=== PATIENT | male | born 1935 | race African-American/Black ===

== ENCOUNTER 2019-10-06 14:48 | Emergency (ER) | payer OTHER ==
[~2019-10-06] VITALS: Ht 180.3 cm; Wt 108.9 kg
[~2019-10-06 14:48] MED LIST: ADCIRCA20 MG PO; Depo-Testo100 MG/1 M IM; FURO20 PO; LISI20; LIVALO4 MG PO; METO100ER PO; Micro-K10 MEQ; NORT10; Robaxin-750750 MG PO; SIMV5; TERA5 PO
[2019-10-06 17:29] LABS: BASOPHILS ABSOLUTE AUTO 0.02 K/mm3 (0.00-0.23); BASOPHILS PERCENT AUTO 0 % (0-2); EOSINOPHILS ABSOLUTE AUTO 0.05 K/mm3 (0.00-0.68); EOSINOPHILS PERCENT AUTO 1 % (0-6); Hematocrit 50.1 % (37.0-53.0); Hemoglobin 15.7 g/dL (13.5-17.5); IMMATURE GRAN ABSOLUTE AUTO 0.03 K/mm3 (0.00-0.10); IMMATURE GRAN PERCENT AUTO 0 % (0-1); LYMPHOCYTES ABSOLUTE AUTO 1.17 K/mm3 (0.84-5.20); LYMPHOCYTES PERCENT AUTO 16 % (21-46); MONOCYTES ABSOLUTE AUTO 0.88 K/mm3 (0.16-1.47); MONOCYTES PERCENT AUTO 12 % (4-13); Mean Corpuscular HGB Conc 31.3 g/dL (31.5-36.5); Mean Corpuscular Volume 96 fL (80-100); Mean Platelet Volume 10.2 fL (9.1-12.4); NEUTROPHILS ABSOLUTE AUTO 4.99 K/mm3 (1.96-9.15); NEUTROPHILS PERCENT AUTO 70 % (41-73); Platelet Count 150 K/mm3 (150-400); RDW Coefficient Variation 13.9 % (11.7-14.2); RDW Standard Deviation 48.8 fL (35.1-46.3); Red Blood Cell Count 5.24 M/mm3 (4.30-5.90); White Blood Cell Count 7.14 K/mm3 (4.00-11.30)
[2019-10-06 18:11] LABS: Anion Gap 5 mmol/L (6-16); CO2, Blood 30 mmol/L (21-32); Chloride, Blood 104 mmol/L (98-108); Potassium, Blood 4.2 mmol/L (3.5-5.5); Sodium, Blood 139 mmol/L (136-145)
[2019-10-06 18:12] LABS: Alanine Aminotransfer (ALT/SGP 18 U/L (12-78); Albumin, Blood 3.5 g/dL (3.4-5.0); Albumin/Globulin Ratio 0.7 (0.8-1.8); Alk Phos 77 U/L (50-136); Aspartate Aminotrans (AST/SGOT 16 U/L (12-37); Bilirubin, Total 0.6 mg/dL (0.1-1.0); Blood Urea Nitrogen 16 mg/dL (8-24); Bun/Creatinine Ratio 13.7 (12.0-20.0); Calcium, Blood 8.9 mg/dL (8.5-10.1); Creatinine, Blood 1.17 mg/dL (0.60-1.20); Globulin, Blood 4.9 g/dL (2.2-4.0); Glomerular Filtration Rate 60 (60-); Glucose, Blood 110 mg/dL (70-99); Total Protein, Blood 8.4 g/dL (6.4-8.2); Troponin I <0.015 ng/mL (0.000-0.040)
[2019-10-06 19:40] LABS: Adenovirus Not Detected (NOT DETECT); Bordetella pertussis Not Detected (NOT DETECT); Chlamydophila pneumoniae Not Detected (NOT DETECT); Coronavirus 229E Not Detected (NOT DETECT); Coronavirus HKU1 Not Detected (NOT DETECT); Coronavirus NL63 Not Detected (NOT DETECT); Coronavirus OC43 Not Detected (NOT DETECT); Human Metapneumovirus Not Detected (NOT DETECT); Human Rhinovirus/Enterovirus Not Detected (NOT DETECT); Influenza A/2009-H1 Not Detected (NOT DETECT); Influenza A/H1 Not Detected (NOT DETECT); Influenza A/H3 Not Detected (NOT DETECT); Influenza B Not Detected (NOT DETECT); Mycoplasma pneumoniae Not Detected (NOT DETECT); Parainfluenza Virus 1 Not Detected (NOT DETECT); Parainfluenza Virus 2 Not Detected (NOT DETECT); Parainfluenza Virus 3 Not Detected (NOT DETECT); Parainfluenza Virus 4 Not Detected (NOT DETECT); Respiratory Syncytial Virus Not Detected (NOT DETECT)
== END 2019-10-06 20:30 | disposition home or self-care (01) ==
LOC: ER 14:48
PROVIDERS: Emergency Medicine
DX: R06.00 Dyspnea, unspecified (principal); I10 Essential (primary) hypertension; K21.9 Gastro-esophageal reflux disease without esophagitis; Z88.8 Allergy status to other drugs, medicaments and biological substances; Z79.899 Other long term (current) drug therapy; Z87.891 Personal history of nicotine dependence
CPT/HCPCS: 0099U; 36415; 71260; 80053; 83880; 84484; 85025; 93005; 93010; 99285-25; Q9967

== ENCOUNTER 2019-10-21 05:46 | Day surgery (SDC) | payer OTHER ==
[~2019-10-21] VITALS: Ht 180.3 cm; Wt 109.0 kg
[~2019-10-21 05:46] MED LIST changes: +ASCO500 PO; +Atrovent Inha12.9 GM INH; +D3 + K2 Dots 11 EACH PO; +Diethylpropion75 MG PO; +LANS15EC PO; +LOSA50 PO; +OMEP20ER PO; +PAROEX473 ML MM; +PROAIR DIGIHAL90 MCG INH; +SIMV80 PO
--- NOTE | 2019-10-21 09:42 | NUR ---
Dr. Perry called for clarification of orders. Pt to have iv fluid at 200/ hr. Pt will be evaluated next appointment by for a diuretic.
--- NOTE | 2019-10-21 12:04 | NUR ---
DISCHARGE INSTRUCTIONS GONE OVER WITH PT, PT VERBALIZES UNDERSTANDING. PT INSTRUCTED ON WHAT TO DO IF BLEEDING WERE TO OCCUR. SLING PLACED ON PT RIGHT ARM REMINDER NOT TO USE RIGHT ARM FOR THE NEXT COUPLE OF DAYS. SALINE LOCK OUT WITH CATHETER INTACT. PT TO PRIVATE VEHICLE PER W/C AND ONE STAFF.
== END 2019-10-21 12:00 | disposition home or self-care (01) ==
LOC: MHTC 05:46
PROC: 4A023N6 Measurement of Cardiac Sampling and Pressure, Right Heart, Percutaneous Approach (ICD-10-PCS; principal; 2019-10-21)
PROC: B201YZZ Plain Radiography of Multiple Coronary Arteries using Other Contrast (ICD-10-PCS; principal; 2019-10-21)
DX: I27.20 Pulmonary hypertension, unspecified (principal); I25.10 Atherosclerotic heart disease of native coronary artery without angina pectoris; E78.5 Hyperlipidemia, unspecified; I10 Essential (primary) hypertension; Z79.899 Other long term (current) drug therapy; Z88.8 Allergy status to other drugs, medicaments and biological substances
CPT/HCPCS: 93456; 99152; 99153; C1769; C1894; J1644; J2250; J3010; J7030; Q9967

== ENCOUNTER → 2020-03-18 | Outpatient (CLI) | payer OTHER ==
[~2020-03-18] MED LIST changes: +ACET325 PO; +ALBU2.5V5; +ALBU90OI INH; +ALDACTONE25 MG PO; +AMLO10 PO; +Aspir 8181 MG PO; +BASAGLAR K100 UNIT/1 SC; +CEFP200 PO; +CRANBERRY500 M1 PO; +DELTASONE20 MG PO; +DILTIAZEM 24HR120 M2 PO; +DOCU100 PO; +FURO40 PO; +HUMALOG KW100 UNIT/1 SC; +IPRAT-ALBUT 0.5-3 ML INH; +MELATONIN10 M1 PO; +METF500 PO; +METO100 PO; +OMEGA-3 FISH O1 EAC6 PO; +PANT20 PO; +PRED20 PO; -PROAIR DIGIHAL90 MCG INH; +Polyvinyl Alcoh15 ML BOTHEYES; +ROSU10TA PO; +SPIRIVA RESPIMAT4 G3 INH; +SULFAMETHOXAZO1 EAC1 PO; +SYMBICORT 160-4.6 GM INH; +TORSE20; +TORSE20 PO; +Terazosin HCl10 MG PO; +VISBIOME PROBIOTIC PO; +VITAMIN D31000 UNI1 PO
[2020-03-18 15:36] LABS: BASOPHILS ABSOLUTE AUTO 0.02 K/mm3 (0.00-0.23); BASOPHILS PERCENT AUTO 0 % (0-2); EOSINOPHILS ABSOLUTE AUTO 0.06 K/mm3 (0.00-0.68); EOSINOPHILS PERCENT AUTO 1 % (0-6); Hematocrit 35.9 % (37.0-53.0); Hemoglobin 11.6 g/dL (13.5-17.5); IMMATURE GRAN ABSOLUTE AUTO 0.02 K/mm3 (0.00-0.10); IMMATURE GRAN PERCENT AUTO 0 % (0-1); LYMPHOCYTES ABSOLUTE AUTO 1.15 K/mm3 (0.84-5.20); LYMPHOCYTES PERCENT AUTO 13 % (21-46); MONOCYTES ABSOLUTE AUTO 0.82 K/mm3 (0.16-1.47); MONOCYTES PERCENT AUTO 9 % (4-13); Mean Corpuscular HGB 30.5 pg (26.0-34.0); Mean Corpuscular HGB Conc 32.3 g/dL (31.5-36.5); Mean Corpuscular Volume 95 fL (80-100); Mean Platelet Volume 10.9 fL (9.1-12.4); NEUTROPHILS ABSOLUTE AUTO 6.82 K/mm3 (1.96-9.15); NEUTROPHILS PERCENT AUTO 77 % (41-73); Platelet Count 186 K/mm3 (150-400); RDW Coefficient Variation 14.8 % (11.7-14.2); RDW Standard Deviation 51.6 fL (35.1-46.3); White Blood Cell Count 8.89 K/mm3 (4.00-11.30)
[2020-03-18 16:01] LABS: Albumin/Globulin Ratio 0.7 (0.8-1.8); Bilirubin, Total 0.5 mg/dL (0.1-1.0); Bun/Creatinine Ratio 16.5 (12.0-20.0); Calcium, Blood 9.4 mg/dL (8.5-10.1); Creatinine, Blood 1.39 mg/dL (0.60-1.20); Globulin, Blood 4.6 g/dL (2.2-4.0); Potassium, Blood 4.6 mmol/L (3.5-5.5); Total Protein, Blood 7.6 g/dL (6.4-8.2); Troponin I 0.041 ng/mL (0.000-0.040)
== END | disposition home or self-care (01) ==
LOC: LAB SHORT 15:31 → LAB EV 15:31
PROVIDERS: Physician Assistant
DX: R07.9 Chest pain, unspecified (principal)
CPT/HCPCS: 80053; 84484; 85025

== ENCOUNTER 2020-05-03 18:59 | Inpatient (IN) | payer OTHER ==
[~2020-05-03] VITALS: Ht 180.3 cm; Wt 98.0 kg
[~2020-05-03 18:59] MED LIST changes: -DELTASONE20 MG PO; -FURO40 PO; +Lasix20 MG PO; +Prednisone10 MG PO
[2020-05-03 19:51] LABS: BASOPHILS ABSOLUTE AUTO 0.02 K/mm3 (0.00-0.23); BASOPHILS PERCENT AUTO 0 % (0-2); EOSINOPHILS PERCENT AUTO 0 % (0-6); Hematocrit 47.5 % (37.0-53.0); IMMATURE GRAN PERCENT AUTO 2 % (0-1); LYMPHOCYTES ABSOLUTE AUTO 0.73 K/mm3 (0.84-5.20); LYMPHOCYTES PERCENT AUTO 7 % (21-46); MONOCYTES PERCENT AUTO 3 % (4-13); Mean Corpuscular HGB 30.6 pg (26.0-34.0); Mean Corpuscular HGB Conc 31.6 g/dL (31.5-36.5); Mean Corpuscular Volume 97 fL (80-100); Mean Platelet Volume 10.1 fL (9.1-12.4); NEUTROPHILS ABSOLUTE AUTO 8.76 K/mm3 (1.96-9.15); NEUTROPHILS PERCENT AUTO 88 % (41-73); NRBC ABSOLUTE 0.04 K/mm3 (0.00-0.02); NRBC Auto 0.4 /100 WBC (0.0-0.2); Platelet Count 93 K/mm3 (150-400); RDW Coefficient Variation 19.7 % (11.7-14.2); RDW Standard Deviation 69.4 fL (35.1-46.3); White Blood Cell Count 10.01 K/mm3 (4.00-11.30)
[2020-05-03 20:00] LABS: PCO2 Arterial 41.8 mmHg (35-45); PO2 Arterial 207 mmHg (80-100); pH Blood Arterial 7.47 (7.35-7.45)
[2020-05-03 20:07] LABS: Alanine Aminotransfer (ALT/SGP 83 U/L (12-78); Albumin, Blood 2.8 g/dL (3.4-5.0); Albumin/Globulin Ratio 0.9 (0.8-1.8); Alk Phos 54 U/L (50-136); Anion Gap 5 mmol/L (6-16); Aspartate Aminotrans (AST/SGOT 28 U/L (12-37); Bilirubin, Total 0.6 mg/dL (0.1-1.0); Blood Urea Nitrogen 32 mg/dL (8-24); Bun/Creatinine Ratio 28.1 (12.0-20.0); CO2, Blood 29 mmol/L (21-32); Calcium, Blood 8.3 mg/dL (8.5-10.1); Chloride, Blood 107 mmol/L (98-108); Creatinine, Blood 1.14 mg/dL (0.60-1.20); Globulin, Blood 3.2 g/dL (2.2-4.0); Glomerular Filtration Rate >60 (60-); Glucose, Blood 164 mg/dL (70-99); Potassium, Blood 4.5 mmol/L (3.5-5.5); Sodium, Blood 141 mmol/L (136-145)
[2020-05-03 20:08] LABS: Troponin I 0.262 ng/mL (0.000-0.040)
[2020-05-03 21:15] LABS: Influenza A, PCR Negative (NEGATIVE); Influenza B, PCR Negative (NEGATIVE); Resp Syncytial Virus, PCR Negative (NEGATIVE); SARS-Cov-2 (COVID-19) PCR, MMC Negative (NEGATIVE)
[2020-05-04 03:31] LABS: BASOPHILS ABSOLUTE AUTO 0.02 K/mm3 (0.00-0.23); BASOPHILS PERCENT AUTO 0 % (0-2); EOSINOPHILS PERCENT AUTO 0 % (0-6); Hemoglobin 14.7 g/dL (13.5-17.5); IMMATURE GRAN ABSOLUTE AUTO 0.15 K/mm3 (0.00-0.10); IMMATURE GRAN PERCENT AUTO 2 % (0-1); LYMPHOCYTES ABSOLUTE AUTO 0.91 K/mm3 (0.84-5.20); LYMPHOCYTES PERCENT AUTO 9 % (21-46); MONOCYTES ABSOLUTE AUTO 0.37 K/mm3 (0.16-1.47); MONOCYTES PERCENT AUTO 4 % (4-13); Mean Corpuscular HGB 30.9 pg (26.0-34.0); Mean Corpuscular HGB Conc 31.3 g/dL (31.5-36.5); Mean Corpuscular Volume 99 fL (80-100); Mean Platelet Volume 10.6 fL (9.1-12.4); NEUTROPHILS ABSOLUTE AUTO 8.75 K/mm3 (1.96-9.15); NEUTROPHILS PERCENT AUTO 86 % (41-73); NRBC ABSOLUTE 0.04 K/mm3 (0.00-0.02); NRBC Auto 0.4 /100 WBC (0.0-0.2); Platelet Count 102 K/mm3 (150-400); RDW Coefficient Variation 19.3 % (11.7-14.2); RDW Standard Deviation 69.8 fL (35.1-46.3); Red Blood Cell Count 4.76 M/mm3 (4.30-5.90)
[2020-05-04 03:51] LABS: Anion Gap 4 mmol/L (6-16); Blood Urea Nitrogen 30 mg/dL (8-24); Bun/Creatinine Ratio 30.4 (12.0-20.0); CO2, Blood 32 mmol/L (21-32); Calcium, Blood 7.8 mg/dL (8.5-10.1); Chloride, Blood 105 mmol/L (98-108); Creatinine, Blood 0.99 mg/dL (0.60-1.20); Glomerular Filtration Rate >60 (60-); Glucose, Blood 82 mg/dL (70-99); Potassium, Blood 3.8 mmol/L (3.5-5.5); Sodium, Blood 141 mmol/L (136-145); Troponin I 0.365 ng/mL (0.000-0.040)
--- NOTE | 2020-05-04 07:30 | NUR ---
SHIFT SUMMARY PT ARRIVED TO THE UNIT AROUND 2300 WITH SOB ON 12LPM VIA NON REBREATHER MASK WITH 02 SATS IN THE HIGH 80'S TO LOW 90'S. PT WAS SWITCHED TO NC AND O2 SATS DROPPED AND SUSTAINED IN THE 80'S SO WENT BACK ON NRB. AFTER PT WAS COMFORTABLE IN BED HE WAS PUT BACK ON NC AT 6LPM AND WAS ABLE TO SLEEP, WHILE SLEEPING O2 SATS REMAINED IN THE 90'S RARELY DROPPING BELOW 90%. LUNGS WERE COARSE SOUNDING T/O. PT STATES BEING ON 3LPM VIA NC AT HOME. VITALS WERE; BP WAS 134/82 UPON ADMISSION DOWN TO 105/68 BY AM, HR IN THE 110'S IN SINUS RHYTHM. BLOOD GLUCOSE CLIMBED FROM 78 TO 132 BY AM, EVENING LANTUS WAS GIVEN UPON ADMISSION TO UNIT. PT IS OUT OF ROOM AT MN.
--- NOTE | 2020-05-04 11:20 | NUR ---
ASSUMED CARE OF PATIENT. REPORT RECEIVED FROM NIKUNJ COFFMAN RN.
--- NOTE | 2020-05-04 12:40 | NUR ---
Spiritual care visit conducted. Patient is sitting up in bed and alert. Patient tells me about his medical history, his current symptoms (SOB and leg weakness) and about what has been happening with [facility] regarding his health. 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 I normalize patient's experience, reinforce helpful attitudes and practices and provide companionship, pastoral employment counselor and prayer. Patient reponds well and shows signs of an elevated mood. I will continue to remain available to patient and fmaily.
--- NOTE | 2020-05-04 19:12 | NUR ---
REQUEST FOR RECORDS FAXED TO [facility] BY RODNEY BUENROSTRO RN.
--- NOTE | 2020-05-04 19:20 | NUR ---
ASSUMED CARE OF PATIENT. REPORT RECEIVED FROM NIKUNJ COFFMAN RN.
--- NOTE | 2020-05-04 23:30 | NUR ---
ASSUMPTION OF CARE RECEIVED BEDSIDE REPORT AND ASSUMED CARE FOR REMAINDER OF SHIFT. PT IS RESTING QUIETLY, EYES CLOSED, IN BED, NO VISIBLE CONCERNS. VSS, BED IN LOW POSITION. WILL CONTINUE PLAN OF CARE AND CONTINUE TO MONITOR.
--- NOTE | 2020-05-04 23:54 | NUR ---
SHIFT SUMMARY: PATIENT A/OX3. HAS DENIED PAIN THROUGHOUT THE SHIFT. ON 6L O2 VIA HIGH FLOW NC. WEARS 4L AT HOME. HAD TO INCREASE O2 TO 8L WHEN PATIENT STOOD UP TO GO TO WHEELCHAIR AND TO TRANSFER TO TOILET IN BATHROOM TO KEEP SPO2 >90%. PATIENT STATES THAT HE FEELS HIS BREATHING HAS IMPROVED AND THAT AMBULATING WAS LESS DIFFICULT THAN PREVIOUSLY. REFUSED CHAIR FOR MEALS, STATES THAT HE WILL TRY TO TOMORROW. REPORT GIVEN TO CALEB BERMEO.
[2020-05-05 04:24] LABS: BASOPHILS ABSOLUTE AUTO 0.01 K/mm3 (0.00-0.23); BASOPHILS PERCENT AUTO 0 % (0-2); EOSINOPHILS PERCENT AUTO 0 % (0-6); Hematocrit 45.4 % (37.0-53.0); Hemoglobin 14.6 g/dL (13.5-17.5); IMMATURE GRAN ABSOLUTE AUTO 0.15 K/mm3 (0.00-0.10); IMMATURE GRAN PERCENT AUTO 1 % (0-1); LYMPHOCYTES ABSOLUTE AUTO 1.04 K/mm3 (0.84-5.20); LYMPHOCYTES PERCENT AUTO 10 % (21-46); MONOCYTES ABSOLUTE AUTO 0.77 K/mm3 (0.16-1.47); MONOCYTES PERCENT AUTO 7 % (4-13); Mean Corpuscular HGB 31.3 pg (26.0-34.0); Mean Corpuscular HGB Conc 32.2 g/dL (31.5-36.5); Mean Corpuscular Volume 97 fL (80-100); Mean Platelet Volume 11.3 fL (9.1-12.4); NEUTROPHILS ABSOLUTE AUTO 8.73 K/mm3 (1.96-9.15); NEUTROPHILS PERCENT AUTO 82 % (41-73); NRBC ABSOLUTE 0.03 K/mm3 (0.00-0.02); NRBC Auto 0.3 /100 WBC (0.0-0.2); Platelet Count 118 K/mm3 (150-400); RDW Coefficient Variation 18.8 % (11.7-14.2); RDW Standard Deviation 67.4 fL (35.1-46.3); Red Blood Cell Count 4.67 M/mm3 (4.30-5.90)
[2020-05-05 04:43] LABS: Albumin, Blood 2.8 g/dL (3.4-5.0); Anion Gap 5 mmol/L (6-16); Blood Urea Nitrogen 36 mg/dL (8-24); Bun/Creatinine Ratio 31.9 (12.0-20.0); CO2, Blood 32 mmol/L (21-32); Calcium, Blood 8.2 mg/dL (8.5-10.1); Chloride, Blood 101 mmol/L (98-108); Creatinine, Blood 1.13 mg/dL (0.60-1.20); Glomerular Filtration Rate >60 (60-); Glucose, Blood 173 mg/dL (70-99); Phosphorus, Blood 3.2 mg/dL (2.5-4.9); Potassium, Blood 3.9 mmol/L (3.5-5.5); Sodium, Blood 138 mmol/L (136-145)
--- NOTE | 2020-05-05 06:35 | NUR ---
SHIFT SUMMARY PT HAS RESTED WELL, AROUSES EASILY, ALERT AND ORIENTED, PLEASANT AND HIGHLY PARTICIPATIVE IN CARE. NO ACUTE CONCERNS, DIURESING NICELY WITH DECREASING OXYGEN DEMANDS. DISCHARGE PLANNING REQUESTED FOR ASSISTANCE R/T GENERALIZED WEAKNESS AND INABILITY TO AMBULATE DISTANCE/STEPS REQUIRED AT HOME. WILL GIVE BEDSIDE REPORT TO CALEB CARSON.
--- NOTE | 2020-05-05 18:31 | NUR ---
SHIFT SUMMARY: PT CONTINUES A&OX4 T/OUT SHIFT, SPENT MOST OF THE DAY IN THE BEDSIDE RECLINER. PT CURRENTLY RECEIVING OXYGEN VIA NC AT 6L/MIN, UP TO 8L/MIN WITH ACTIVITY. PT STATES IMPROVEMENT OF OVERALL FEELING TODAY, IS COMPLIANT WITH HIS STRICT I&O, RECEIVING IV LASIX Q6H, VS HAVE BEEN STABLE. PT C/O SORE INSIDE MOUTH, DR GILLIAM EVALUATED, PLACED ORDERS FOR PRN VISCOUS LIDOCAINE, PT IS AWARE BUT HAS NOT REQUESTED MEDICATION THUS FAR. WILL CONTINUE TO MONITOR AND TREAT ACCORDINGLY UNTIL CHANGE OF SHIFT.
--- NOTE | 2020-05-06 01:58 | NUR ---
UPDATE PT NEEDED PANTS CHANGED. PT STOOD WITH WALKER AND LOWERED SELF ONTO BED. PT UNSURE IF HE PASSED OUT. CHARGE NURSE CALLED INTO THE ROOM. PT'S OXYGEN SATURATION DECREASED TO 82%, OXYGEN INCREASED TO 11 L VIA NC. OXYGEN SATURATION RETURNED TO 95%. AFTER 15 MINUTES OXYGEN SUPPLEMENTATION DECREASED TO 5L. PT OXYGEN SATURATION MAINTAINED AT 92%. TELEMETRY REVIEWED TO DETERMINE IF CARDIAC CHANGED OCCURED DURING THIS TIME. NO CARDIAC CHANGES WERE SEEN. PT REPORTS NO CP OR PRESSURE.
[2020-05-06 04:20] LABS: Hematocrit 46.8 % (37.0-53.0); Hemoglobin 14.6 g/dL (13.5-17.5); Mean Corpuscular HGB 30.5 pg (26.0-34.0); Mean Corpuscular HGB Conc 31.2 g/dL (31.5-36.5); Mean Corpuscular Volume 98 fL (80-100); Mean Platelet Volume 9.8 fL (9.1-12.4); NRBC ABSOLUTE 0.03 K/mm3 (0.00-0.02); NRBC Auto 0.4 /100 WBC (0.0-0.2); Platelet Count 111 K/mm3 (150-400); RDW Coefficient Variation 18.7 % (11.7-14.2); RDW Standard Deviation 67.7 fL (35.1-46.3); Red Blood Cell Count 4.79 M/mm3 (4.30-5.90); White Blood Cell Count 8.57 K/mm3 (4.00-11.30)
[2020-05-06 04:39] LABS: Anion Gap 3 mmol/L (6-16); Blood Urea Nitrogen 36 mg/dL (8-24); Bun/Creatinine Ratio 39.7 (12.0-20.0); CO2, Blood 36 mmol/L (21-32); Calcium, Blood 8.4 mg/dL (8.5-10.1); Chloride, Blood 102 mmol/L (98-108); Creatinine, Blood 0.91 mg/dL (0.60-1.20); Glomerular Filtration Rate >60 (60-); Glucose, Blood 161 mg/dL (70-99); Potassium, Blood 3.8 mmol/L (3.5-5.5); Sodium, Blood 141 mmol/L (136-145)
--- NOTE | 2020-05-06 05:17 | NUR ---
SHIFT SUMMARY PT AWAKE T/O SHIFT. PT ALERT AND ORIENTED X 4. PT ABLE TO TURN SELF IN BED NEEDED. OXYGEN LEVEL DESATS UPON EXERTION BUT RECOVERS DURING REST. OXYGEN LEVEL MAINTAINED ABOVE 92% ON 5 L OF OXYGEN VIA NC. HR STABLE. BP STABLE. PT REPORTS NO CP OR PRESSURE DURING SHIFT. WILL CONTINUE TO MONITOR UNTIL REPORT GIVEN TO DAYSHIFT RN.
--- NOTE | 2020-05-06 08:00 | NUR ---
pt laying in bed, awake a/ox3, pleasant and cooperative with care, follows commands well, denies any complaints of pain or sob this am, feels like he had a good night and slept, lungs are course, with some exp wheezing t/o, resp even and unlabored at rest, he reports he becomes very labored and sats drop with activity, is currently on 5 liters 02 via n/c, no cough noted, hrr, tele in place running sr to st per monitor, see strip, no edema noted, PPP+1, cap refill <3sec, vs stable, afebrile, iv site clear and patent, btx4, abd flat soft nontender, incon of urine and stool, attends in place, skin c/w/d, maew, very weak, love, call light in reach.
--- NOTE | 2020-05-06 18:01 | NUR ---
received pt care at 1500. pt has been quite pleasant and talkative since assumed care. was here for awhile this aft. then went home. pt is compliant with any care requests made. o2 staying 90-91%. does desat when he talks some. no new concerns. bed in low position, call lite in reach, calls approp
[2020-05-07 04:15] LABS: Anion Gap 5 mmol/L (6-16); Blood Urea Nitrogen 41 mg/dL (8-24); CO2, Blood 33 mmol/L (21-32); Calcium, Blood 8.5 mg/dL (8.5-10.1); Chloride, Blood 101 mmol/L (98-108); Creatinine, Blood 1.08 mg/dL (0.60-1.20); Glomerular Filtration Rate >60 (60-); Glucose, Blood 221 mg/dL (70-99); Potassium, Blood 4.3 mmol/L (3.5-5.5); Sodium, Blood 139 mmol/L (136-145)
--- NOTE | 2020-05-07 05:23 | NUR ---
SHIFT SUMMARY PT SLEPT T/O SHIFT. PT ALERT AND ORIENTED X 4. PT ABLE TO TURN SELF IN BED. PT ABLE TO USE URINAL NEEDED. OXYGEN SATURAION MAINTAINED ABOVE 92% ON 4 L OF OXYGEN VIA NC. HR STABLE. BP STABLE. PT REPORTS NO CP OR PRESSURE. WILL CONTINUE TO MONITOR UNTIL REPORT GIVEN TO DAYSHIFT RN.
--- NOTE | 2020-05-07 18:15 | NUR ---
SHIFT SUMMARY: PT CONTINUES A&O TO PERSON, PLACE, SITUATION T/OUT SHIFT. PT TYRESE TO STAND AND TRANSFER SELF TO BEDSIDE CHAIR, CONTINUES WEAK AND BECOMES SOB, BUT RECOVERING QUICKER TODAY WHEN COMPARED TO PREVIOUS DAYS. PT ALSO STATES IMPROVEMENT OF OVERALL FEELING OF WELLNESS. WILL CONTINUE TO MONITOR AND TREAT ACCORDINGLY UNTIL CHANGE OF SHIFT.
--- NOTE | 2020-05-07 22:10 | NUR ---
UPDATE WHILE TRANSFERRING THE PT BACK TO BED FROM THE CHAIR THE PT'S OXYGEN LOWERED INTO THE 80'S. PT'S OXYGEN DEMAND INCREASED TO 7 L/MIN. PT FELT WEAK/DIZZY. OXYGEN SATURATION MAINTAINED AT 94% WITHIN 1 MINUTE OF INCREASING PT'S OXYGEN LEVEL VIA NC.
--- NOTE | 2020-05-08 05:29 | NUR ---
SHIFT SUMMARY PT ALERT AND ORIENTED X 4. PT ABLE TO TURN SELF IN BED NEEDED. PT OXYGEN LEVEL DESATS QUICKLY WITH AMBULATION, PT RECOVERS QUICKLY. PT REPORTS NO CP OR PRESSURE. HR STABLE. BP STABLE. OXYGEN SATURATION MAINTAINED ABOVE 92% ON 4-5 L OF OXYGEN VIA NC. WILL CONTINUE TO MONITOR UNTIL REPORT GIVEN TO DAYSHIFT RN.
--- NOTE | 2020-05-08 12:50 | NUR ---
Clinical Visit: Pt is alert, oriented, pleasant. He jokes frequently; it is clear that pt does not want to approach serious matters without humor. Presented POLST form and resusitation measures. Questions answered. After discussion, pt is accepting of all FULL code resusitation interventions. He states, "I want all of it." Pt is also okay to having dialysis and feeding tubes if needed. , Laura, is at bedside and is part of the conversation. POLST filled out and signed by pt. Message on doorway for doc to sign prior to discharge tomorrow. No other concerns, will remain available.
--- NOTE | 2020-05-08 15:53 | NUR ---
Spiritual care visit conducted. Patient is sitting on a chair and alert. Patient tells me about the tragedy of the complicated of his [id number] that occured last week and the blessing of his improved health and of having his grown children coming home for Thanksgiving. Patient tells me about his deep trust in God, his peace about and dying and about his gratitude for the [facility] at [facility]. I provide grief support, companionship and prayer. In a strange turn of events patient, in turn, says a prayer for me. We were both encouraged and said so. I will continue to remain available to patient and his family.
--- NOTE | 2020-05-08 18:18 | NUR ---
SHIFT SUMMARY: NO ACUTE CHANGES THIS SHIFT. PT CONTINUES ALERT AND ORIENTED X4, IS ABLE TO TRANSFER SELF IN WAYS THAT WILL MIMIC WHAT HIS HOME ENVIRONMENT WILL BE LIKE AND TOLERATES WELL. PT TRANSFERS SELF TO AND FROM BEDSIDE CHAIR, WHEELCHAIR, RESTROOM, AND BED WITH MILD OXYGEN DESATURATION. PT STATES CONTINUED IMPROVEMENT OF OVERALL FEELING. PT REQUESTING TO DC HOME TOMORROW, DR GILLIAM AGREEABLE DEPENDING ON PT STATUS AND PROGRESSION OF SYMPTOMS. WILL CONTINUE TO MONITOR AND TREAT ACCORDINGLY UNTIL CHANGE OF SHIFT.
[2020-05-09 04:24] LABS: Anion Gap 3 mmol/L (6-16); Blood Urea Nitrogen 35 mg/dL (8-24); Bun/Creatinine Ratio 37.8 (12.0-20.0); CO2, Blood 36 mmol/L (21-32); Calcium, Blood 8.5 mg/dL (8.5-10.1); Chloride, Blood 104 mmol/L (98-108); Creatinine, Blood 0.93 mg/dL (0.60-1.20); Glomerular Filtration Rate >60 (60-); Glucose, Blood 254 mg/dL (70-99); Potassium, Blood 4.3 mmol/L (3.5-5.5); Sodium, Blood 143 mmol/L (136-145)
--- NOTE | 2020-05-09 05:52 | NUR ---
SHIFT SUMMARY PT ALERT AND ORIENTED X 4. PT SBA FROM CHAIR TO BED. PT USES URINAL NEEDED. PT REPORTS NO CP OR PRESSURE. OXYGEN SATURATION MAINTAINED AT 92% WITH 4-6 L OF OXYGEN VIA NC. BP STABLE. HR STABLE. PT ABLE TO TURN SELF IN BED. WILL CONTINUE TO MONITOR UNTIL REPORT GIVEN TO DAYSHIFT RN.
[2020-05-09] MEDS ORDERED: SPIR25 PO (17:48)
[2020-05-09] MEDS ORDERED: GUAI600T33 PO (17:48)
--- NOTE | 2020-05-09 17:53 | NUR ---
DISCHARGE INSTRUCTIONS REVIEWED WITH PT AND SPOUSE. DC'D A/A/OX4 ON HOME O2 BROUGHT BY .
== END 2020-05-09 18:19 | disposition home or self-care (01) | DRG 291 ==
LOC: ER 18:59 → PCU 19:00
PROVIDERS: Emergency Medicine; Internal Medicine; Internal Medicine Critical Care Medicine; Nurse Practitioner Acute Care; ADMIT Family Medicine
DX: I13.0 Hypertensive heart and chronic kidney disease with heart failure and stage 1 through stage 4 chronic kidney disease, or unspecified chronic kidney disease (principal); J96.21 Acute and chronic respiratory failure with hypoxia; I50.33 Acute on chronic diastolic (congestive) heart failure; J84.9 Interstitial pulmonary disease, unspecified; J84.10 Pulmonary fibrosis, unspecified; N18.30 Chronic kidney disease, stage 3 unspecified; Z96.653 Presence of artificial knee joint, bilateral; I27.20 Pulmonary hypertension, unspecified; Z87.891 Personal history of nicotine dependence; Z96.649 Presence of unspecified artificial hip joint; Z79.82 Long term (current) use of aspirin; Z79.4 Long term (current) use of insulin; E66.9 Obesity, unspecified; K21.9 Gastro-esophageal reflux disease without esophagitis; Z20.828 Contact with and (suspected) exposure to other viral communicable diseases; E09.22 Drug or chemical induced diabetes mellitus with diabetic chronic kidney disease; E78.5 Hyperlipidemia, unspecified; N40.0 Benign prostatic hyperplasia without lower urinary tract symptoms; G47.00 Insomnia, unspecified; J43.9 Emphysema, unspecified; E09.649 Drug or chemical induced diabetes mellitus with hypoglycemia without coma; Z99.81 Dependence on supplemental oxygen; Z68.29 Body mass index [BMI] 29.0-29.9, adult
CPT/HCPCS: 0241U; 36415; 36600; 71045; 71260; 80048; 80053; 80069; 82803; 82947; 83880; 84145; 84484; 85025; 85027; 85379; 93005; 93010; 94640; 94760; 94762; 96374; 97110; 97162; 97165; 97530; 97535; 99285-25; A9270; A9270-GY; J1650; J1940; J2930; J7512; Q9967

== ENCOUNTER 2020-05-12 00:12 | Inpatient (IN) | payer OTHER ==
[~2020-05-12] VITALS: Ht 180.3 cm; Wt 88.9 kg
[~2020-05-12 00:12] MED LIST changes: +GUAI600T33 PO; +SPIR25 PO
[2020-05-12 00:35] LABS: PCO2 Arterial 44.2 mmHg (35-45); PO2 Arterial 106 mmHg (80-100); pH Blood Arterial 7.46 (7.35-7.45)
[2020-05-12 01:53] LABS: Hematocrit 46.5 % (37.0-53.0); Hemoglobin 14.4 g/dL (13.5-17.5); Mean Corpuscular HGB 30.6 pg (26.0-34.0); Mean Corpuscular Volume 99 fL (80-100); Mean Platelet Volume 10.4 fL (9.1-12.4); NRBC ABSOLUTE 0.05 K/mm3 (0.00-0.02); NRBC Auto 0.5 /100 WBC (0.0-0.2); Platelet Count 137 K/mm3 (150-400); RDW Standard Deviation 69.9 fL (35.1-46.3); White Blood Cell Count 10.28 K/mm3 (4.00-11.30)
[2020-05-12 02:00] LABS: Alanine Aminotransfer (ALT/SGP 76 U/L (12-78); Albumin/Globulin Ratio 0.9 (0.8-1.8); Alk Phos 53 U/L (50-136); Anion Gap 4 mmol/L (6-16); Aspartate Aminotrans (AST/SGOT 28 U/L (12-37); Bilirubin, Total 0.7 mg/dL (0.1-1.0); Blood Urea Nitrogen 36 mg/dL (8-24); Bun/Creatinine Ratio 32.7 (12.0-20.0); CO2, Blood 33 mmol/L (21-32); Calcium, Blood 8.4 mg/dL (8.5-10.1); Chloride, Blood 106 mmol/L (98-108); Globulin, Blood 3.4 g/dL (2.2-4.0); Glomerular Filtration Rate >60 (60-); Glucose, Blood 76 mg/dL (70-99); Potassium, Blood 4.1 mmol/L (3.5-5.5); Sodium, Blood 143 mmol/L (136-145); Total Protein, Blood 6.4 g/dL (6.4-8.2); Troponin I 0.435 ng/mL (0.000-0.040)
[2020-05-12 02:18] LABS: BAND PERCENT MAN 3 % (0-8); BASOPHILS PERCENT MAN 0 % (0-2); EOSINOPHILS PERCENT MAN 0 % (0-6); LYMPHOCYTES ABSOLUTE MAN 1.02 K/mm3 (0.84-5.20); LYMPHOCYTES PERCENT MAN 10 % (21-46); MONOCYTES ABSOLUTE MAN 0.82 K/mm3 (0.16-1.47); MONOCYTES PERCENT MAN 8 % (4-13); MYELOCYTE PERCENT MAN 1 % (0-0); NEUTROPHILS ABSOLUTE MAN 8.32 K/mm3 (1.96-9.15); SEG NEUTROPHILS PERCENT MAN 78 % (41-73); TOTAL CELLS COUNTED 100
[2020-05-12 03:17] LABS: Adenovirus Not Detected (NOT DETECT); Coronavirus 229E Not Detected (NOT DETECT); Coronavirus HKU1 Not Detected (NOT DETECT); Coronavirus NL63 Not Detected (NOT DETECT); Coronavirus OC43 Not Detected (NOT DETECT)
[2020-05-12 03:19] LABS: Bordetella pertussis Not Detected (NOT DETECT); Chlamydophila pneumoniae Not Detected (NOT DETECT); Human Metapneumovirus Not Detected (NOT DETECT); Human Rhinovirus/Enterovirus Not Detected (NOT DETECT); Influenza A/2009-H1 Not Detected (NOT DETECT); Influenza A/H1 Not Detected (NOT DETECT); Influenza A/H3 Not Detected (NOT DETECT); Influenza B Not Detected (NOT DETECT); Mycoplasma pneumoniae Not Detected (NOT DETECT); Parainfluenza Virus 1 Not Detected (NOT DETECT); Parainfluenza Virus 2 Not Detected (NOT DETECT); Parainfluenza Virus 3 Not Detected (NOT DETECT); Parainfluenza Virus 4 Not Detected (NOT DETECT); Respiratory Syncytial Virus Not Detected (NOT DETECT); SARS-Cov-2 (COVID-19), BioFire Detected (NOT DETECT)
[2020-05-12 03:35] LABS: CPK Creatine Kinase 86 U/L (39-308)
--- NOTE | 2020-05-12 04:20 | NUR ---
ADMIT NOTE PT ARRIVED TO PCU FROM ED VIA STRETCHER AT APPROX 0400. THE PT WAS SLID FROM ED STRETCHER TO PCU BED BY 4 STAFF. PT A&OX4. SP02>90% ON 15L NC. SOB UPON EXERTION. RESPIRATORY IN ROOM. TELEMETRY READS SINUS TACH, HR 110'S. PT USED URINAL AT BEDSIDE TO VOID. ORIENTED PT TO ROOM. PT CALLED TO UPDATE. ANTIBIOTICS INFUSING PER EMAR. CALL LIGHT IN REACH. WILL CONTINUE TO MONITOR.
--- NOTE | 2020-05-12 08:00 | NUR ---
Received report from Noc RN. Patient awake in bed sitting up with HOB at 30 degrees. He is very soft spoken and thankful for his care. He is able to communicate his needs. He is on NC at 6L and is SOB with any exertion. His cbg was 50 and CN gave peanut butter and yogurt. He has temp 99.1./ He uses urinal appropriately.
--- NOTE | 2020-05-12 09:30 | NUR ---
Patient tolerated med with sips of water. His O2 is now 5L O2 via NC. He has just been resting saving his energy. He has 20ga DINORA and is infusing NS TKO. Cardizem PO started after infusion stopped on Noc shift after converting to ST 100's. VEGA but remains very weak.
[2020-05-12 10:32] LABS: Troponin I 0.38 ng/mL (0.000-0.040)
--- NOTE | 2020-05-12 12:26 | NUR ---
Patient continues to rest. RT reduced O2 to home level of 4L O2. Still SOB with exertion. Talked with Dr Melo and with start on ADA diet as tolerated. VSS, SeeEMR. CBG 97 and no coverage needed.
[2020-05-12 12:33] LABS: BASOPHILS ABSOLUTE AUTO 0.04 K/mm3 (0.00-0.23); BASOPHILS PERCENT AUTO 0 % (0-2); EOSINOPHILS ABSOLUTE AUTO 0.01 K/mm3 (0.00-0.68); EOSINOPHILS PERCENT AUTO 0 % (0-6); Hematocrit 42.2 % (37.0-53.0); Hemoglobin 13.5 g/dL (13.5-17.5); IMMATURE GRAN ABSOLUTE AUTO 0.41 K/mm3 (0.00-0.10); IMMATURE GRAN PERCENT AUTO 4 % (0-1); LYMPHOCYTES ABSOLUTE AUTO 1.05 K/mm3 (0.84-5.20); LYMPHOCYTES PERCENT AUTO 11 % (21-46); MONOCYTES ABSOLUTE AUTO 0.48 K/mm3 (0.16-1.47); MONOCYTES PERCENT AUTO 5 % (4-13); Mean Corpuscular HGB 31.8 pg (26.0-34.0); Mean Corpuscular Volume 99 fL (80-100); Mean Platelet Volume 10.3 fL (9.1-12.4); NEUTROPHILS ABSOLUTE AUTO 7.64 K/mm3 (1.96-9.15); NEUTROPHILS PERCENT AUTO 79 % (41-73); NRBC ABSOLUTE 0.04 K/mm3 (0.00-0.02); NRBC Auto 0.4 /100 WBC (0.0-0.2); Platelet Count 126 K/mm3 (150-400); Red Blood Cell Count 4.25 M/mm3 (4.30-5.90); White Blood Cell Count 9.63 K/mm3 (4.00-11.30)
--- NOTE | 2020-05-12 14:30 | NUR ---
Patient resting. He tolerated lunch 100%. He remains at 4L O2 as he wears at home. he seems a little les SOB with exertion. Patient states he feels better. VSS. See EMR. He continues with NS TKO. No other significant changes,
--- NOTE | 2020-05-12 17:40 | NUR ---
Patient doing well with dinner. He is sitting up in bed playing on I Pad. He stated nose plugged and got him saline spray and worked to clear air passage. His CBG now that he is eating was 305 and covered per SS. Patient uses urinal without assistance.
[2020-05-12 17:58] LABS: Troponin I 0.197 ng/mL (0.000-0.040)
[2020-05-13 04:10] LABS: BASOPHILS ABSOLUTE AUTO 0.03 K/mm3 (0.00-0.23); BASOPHILS PERCENT AUTO 0 % (0-2); EOSINOPHILS PERCENT AUTO 0 % (0-6); Hematocrit 41.6 % (37.0-53.0); IMMATURE GRAN ABSOLUTE AUTO 0.29 K/mm3 (0.00-0.10); IMMATURE GRAN PERCENT AUTO 4 % (0-1); LYMPHOCYTES PERCENT AUTO 15 % (21-46); MONOCYTES ABSOLUTE AUTO 0.67 K/mm3 (0.16-1.47); MONOCYTES PERCENT AUTO 9 % (4-13); Mean Corpuscular HGB 31.1 pg (26.0-34.0); Mean Corpuscular HGB Conc 31.3 g/dL (31.5-36.5); Mean Corpuscular Volume 100 fL (80-100); Mean Platelet Volume 11.6 fL (9.1-12.4); NEUTROPHILS PERCENT AUTO 71 % (41-73); NRBC ABSOLUTE 0.04 K/mm3 (0.00-0.02); NRBC Auto 0.6 /100 WBC (0.0-0.2); Platelet Count 141 K/mm3 (150-400); RDW Coefficient Variation 18.9 % (11.7-14.2); Red Blood Cell Count 4.18 M/mm3 (4.30-5.90); White Blood Cell Count 7.19 K/mm3 (4.00-11.30)
[2020-05-13 04:34] LABS: Alanine Aminotransfer (ALT/SGP 72 U/L (12-78); Albumin, Blood 2.5 g/dL (3.4-5.0); Albumin/Globulin Ratio 0.9 (0.8-1.8); Alk Phos 44 U/L (50-136); Anion Gap 3 mmol/L (6-16); Aspartate Aminotrans (AST/SGOT 23 U/L (12-37); Bilirubin, Total 0.5 mg/dL (0.1-1.0); Blood Urea Nitrogen 39 mg/dL (8-24); Bun/Creatinine Ratio 32.5 (12.0-20.0); CO2, Blood 33 mmol/L (21-32); Calcium, Blood 8.3 mg/dL (8.5-10.1); Chloride, Blood 104 mmol/L (98-108); Globulin, Blood 2.9 g/dL (2.2-4.0); Glomerular Filtration Rate >60 (60-); Glucose, Blood 163 mg/dL (70-99); Potassium, Blood 4.3 mmol/L (3.5-5.5); Sodium, Blood 140 mmol/L (136-145); Total Protein, Blood 5.4 g/dL (6.4-8.2)
--- NOTE | 2020-05-13 06:22 | NUR ---
END OF SHIFT SUMMARY NO ACUTE CHANGES THIS SHIFT. VSS. REMAINS AXO. 4LNC, EXCEPT ONE PERIOD OF GETTING UP TO BSC WHICH LEAD TO ANXIETY ATTACK, DESATURATION, AND FOLLOWING RECOVERY ON 7L. HAS SINCE RECOVERED AND BACK ON 4LNC. PT USING URINAL. HAD BM THIS SHIFT. REMAINS IN NEGATIVE PRESSURE FOR COVID. OTHERWISE, PT IN ROOM RESTING OFF AND ON. WILL CONTINUE TO MONITOR UNTIL SHIFT CHANGE.
--- NOTE | 2020-05-13 07:29 | NUR ---
ASSUMED CARE: RT AND ORACLE SQL DEVELOPER EXITED ROOM AND REPORTED THAT PT WAS HAVING ABDOMINAL PAIN. ORACLE SQL DEVELOPER REPORTS ANXIETY. NO OTHER NEEDS AT THIS TIME.
--- NOTE | 2020-05-13 17:01 | NUR ---
REPORT GIVEN TO CALEB BAL. PT TRANSFERRED VIA WHEEL CHAIR ON 6L. DENIED FURTHER NEEDS OR CONCERNS.
--- NOTE | 2020-05-13 17:52 | NUR ---
SHIFT SUMMARY PATIENT TO THE MEDICAL FLOOR FROM PCU LATE THIS AFTERNOON. PATIENT ALERT AND ORIENTED UPON ARRIVAL. PATIENT TRANSFERED FROM THE WHEELCHAIR TO THE BED INDEPENDENTLY. PATIENT MADE COMFORTABLE, ORIENTED TO THE ROOM. PATIENT REMAINS ON 4L OF O2. PATIENT WITHOUT RESPRIATORY DISTRESS OR INCREASED EFFORT. PATIENT CURRENTLY SITTING UP IN BED EATING DINNER.
[2020-05-14 06:01] LABS: BASOPHILS ABSOLUTE AUTO 0.02 K/mm3 (0.00-0.23); BASOPHILS PERCENT AUTO 0 % (0-2); EOSINOPHILS PERCENT AUTO 0 % (0-6); Hemoglobin 14.4 g/dL (13.5-17.5); IMMATURE GRAN ABSOLUTE AUTO 0.19 K/mm3 (0.00-0.10); IMMATURE GRAN PERCENT AUTO 3 % (0-1); LYMPHOCYTES ABSOLUTE AUTO 1.31 K/mm3 (0.84-5.20); LYMPHOCYTES PERCENT AUTO 24 % (21-46); MONOCYTES ABSOLUTE AUTO 0.84 K/mm3 (0.16-1.47); MONOCYTES PERCENT AUTO 15 % (4-13); Mean Corpuscular HGB 30.7 pg (26.0-34.0); Mean Corpuscular HGB Conc 31.3 g/dL (31.5-36.5); Mean Corpuscular Volume 98 fL (80-100); NEUTROPHILS ABSOLUTE AUTO 3.16 K/mm3 (1.96-9.15); NEUTROPHILS PERCENT AUTO 57 % (41-73); NRBC ABSOLUTE 0.02 K/mm3 (0.00-0.02); NRBC Auto 0.4 /100 WBC (0.0-0.2); RDW Coefficient Variation 18.5 % (11.7-14.2); RDW Standard Deviation 66.7 fL (35.1-46.3); Red Blood Cell Count 4.69 M/mm3 (4.30-5.90); White Blood Cell Count 5.52 K/mm3 (4.00-11.30)
[2020-05-14 06:05] LABS: Mean Platelet Volume 10.7 fL (9.1-12.4); Platelet Count 110 K/mm3 (150-400)
[2020-05-14 06:17] LABS: Anion Gap 4 mmol/L (6-16); Blood Urea Nitrogen 38 mg/dL (8-24); Bun/Creatinine Ratio 37.6 (12.0-20.0); CO2, Blood 29 mmol/L (21-32); Calcium, Blood 8.2 mg/dL (8.5-10.1); Chloride, Blood 105 mmol/L (98-108); Creatinine, Blood 1.01 mg/dL (0.60-1.20); Glomerular Filtration Rate >60 (60-); Glucose, Blood 131 mg/dL (70-99); Potassium, Blood 4.7 mmol/L (3.5-5.5); Sodium, Blood 138 mmol/L (136-145)
--- NOTE | 2020-05-14 06:24 | NUR ---
SHIFT SUMMARY PATIENT ALERT AND ORIENTED. PATIENT STAYED AWAKE MOST OF THE NIGHT. WAS MEDICATED PER EMAR FOR A HEADACHED. THEN PATIENT COMPLAINED ABOUT A SORE THROAT AND DRY MOUTH. THIS RN CALLED THE SOFTWARE PACKAGER PHYSICIAN, DR BOONE, TO NOTIFY HIM OF THIS AND DR BOONE ORDERED CEPACOL LOZENGES, WHICH THE PATIENT STATED WERE HELPFUL. IV PATENT DND FLUSHED. BED IN LOWEST POSITION WIEHT WHEELS LOCKED. CALL LIGHT WITHIN REACH. REPORT GIVEN TO ONCOMING RN.
--- NOTE | 2020-05-14 18:18 | NUR ---
SHIFT SUMMARY: NO ACUTE CHANGES/EVENTS TO REPORT THIS SHIFT. PT A&O; CALM AND COOPERATIVE WITH CARE. NO C/O PAIN/NAUSEA THIS SHIFT. O2 @ 3L; PT USES 3-4L @ HOME. REMDESIVIR & STEROIDS CONTINUING. DIURETICS CONTINUING. WCTM.
[2020-05-15 05:50] LABS: Anion Gap 6 mmol/L (6-16); Blood Urea Nitrogen 37 mg/dL (8-24); Bun/Creatinine Ratio 35.9 (12.0-20.0); CO2, Blood 31 mmol/L (21-32); Calcium, Blood 8.4 mg/dL (8.5-10.1); Chloride, Blood 104 mmol/L (98-108); Creatinine, Blood 1.03 mg/dL (0.60-1.20); Glomerular Filtration Rate >60 (60-); Glucose, Blood 135 mg/dL (70-99); Potassium, Blood 3.9 mmol/L (3.5-5.5); Sodium, Blood 141 mmol/L (136-145)
--- NOTE | 2020-05-15 05:57 | NUR ---
SHIFT SUMMARY AOX4. ANXIOUS ABOUT BREATHING & SPO2 @BEGINNING OF SHIFT, PT ADMITS TO FEELING ANXIOUS @TIMES. SPO2 >90% ON 3L O2 (3-4L BASELINE). LUNGS SOUND DIM c CRACKLES IN BASES. REPORTS 5/10 HEADACHE & THROAT/MOUTH PAIN, MEDICATED 1X c TYLENOL, CEPACOL LOSANGES, NYSTATIN SWISH & SWALLOW & PROVIDED WARM TEA. 2 ASSIST c GAIT BELT TO BSC BECAUSE PT REPORTED FEELING WEAK. HAD LRG BM THIS SHIFT. RECIEVING PO LASIX, HAD ROUGHLY 700ML URINE OUTPUT PLUS 1 UNMEASURED VOID. +1-2 EDEMA BLE. CALL LIGHT IN REACH & PT ABLE TO MAKE NEEDS KNOWN.
--- NOTE | 2020-05-15 10:39 | NUR ---
AM ASSESSMENT PT STATED FEELING IMPROVED ON INITIAL INTRODUCTION. O2 @ 3L, BIOX 95%, LUNGS DECREASED HOWEVER CLEAR. HE STATE CONTINUING SORE THROAT, ORAL THRUSH, STATE EXCAREBATED BY RINSING w LUKE WARM ATER AFTER SYMBICOT--RT NOTIFIED TO ASSURE HOT WATER RINSE/PT. AFTER BF PT STATE INCREASED SOB, INCREASED THROAT & LOWER CHEST PAIN, HE BECAME ANXIOUS THEN SYMPTOMS SUBSIDE & HE ONCE AGIAN STATE FEELING IMPROVED. OFFERED CEPACOL LOZENGE FOR THROAT DISCOMFORT, DECLINED.
--- NOTE | 2020-05-15 12:11 | NUR ---
CBG 146, NO S/S INSULIN REQUIRED. LAB DID NOT TRANSFER TO INTRANET/WIFI.
--- NOTE | 2020-05-15 16:53 | NUR ---
SUMMARY PT IS A/O X4, PLEASANT/COOPERATIVE AFFECT. UP TO CHAIR 1 ASSIST w ISMAEL TODAY. HE STATE HE FEELS BREATHING IS IMPROVING, HX COPD, CHF. O2 DEPENDANT, USES 3L @ REST, WE ARE CURRENTLY @ HOME DOSE 3L, BIOX 92-95% LUNGS CLEAR, DECREASED THIS AM, MINIMAL COUGH TODAY. HE USES FLUTTER & INCSPIR INSTRUCTED. DIURETIC IS ORAL LASIX, HE HAS HAD GOOD URINE OUTPUT TODAY, >1 LITER SO FAR. HE @ X'S IS ANXIOUS/DRAMATIC IF HE BECOMES UNCOMFORTABLE IN ANY WAY, REQUIRES REASSURANCE. MAIN COMPLAINT TODAY WAS CONTINUING SORE THROAT & ESOPHAGEAL PAIN R/T THRUSH, HE STATE NYSTATIN SWISH HAS BEEN EFFECTIVE RELIEF. HE HAS BEEN UP IN CHAIR THIS AFTERNOON. VSS/AFEBRILE.
--- NOTE | 2020-05-16 05:57 | NUR ---
SHIFT SUMMARY SLEPT WELL TONIGHT. AOX4. VSS. SPO2 @96-98% ON 3L THIS AM. E/U RESPIRATIONS. DENIES DYSPNEA. STATES HE FEELS BREATHING IS IMPROVING. HS CBG @271. RECIEVING PO LASIX FOR CHF. IND c URINAL, ROUGHLY 825ML OUTPUT. REPORTS SORE THROAT/MOUTH, MEDICATED c NYSTATIN SWISH/SWALLOW, CEPACOL LOSANGE & HOT TEA, PT STATED RELIEF. PLEASENT & COOPERATIVE c CARE. CALL LIGHT IN REACH & ABLE TO MAKE NEEDS KNOWN.
--- NOTE | 2020-05-16 09:29 | NUR ---
Late note from 05/15/20. Patient is sitting up in bed and alert patient tells me about his Thanksgiving and his trip back to the hospital for readmit. Patient shares about his fears and his conchis. I provide therapeutic listening, pastoral director of counseling and prayer. Patient responds well and shows signs of increased peace. I also contacted patient's and offered Blippar phone number to further help with communication now that she will not be able to visit patient.
--- NOTE | 2020-05-16 12:05 | NUR ---
Patient is lying in bed and resting but easily awakens to the sound of his name. Patient tells me that he is concerned about his who is at home dealing with the virus and is having worsening symptoms. Patient states that he and God "got this Covid handled" for himself and that he is "ready to move on to bigger and better things." He also tells me that both his grown children have COVID-19 symptoms and his son has tested posituve and his daughter is wating on results. I provide companionship, a calming presence and prayer (for aleksandr and his family). 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 Patient responds well and shows signs of an elevated mood. I will continue to remain available to patient and family.
--- NOTE | 2020-05-16 17:19 | NUR ---
SUMMARY PT IS A/O X4, PLEASANT AFFECT, HOWEVER CAN BECOME ANXIOUS WHEN SHORT OF BREATH. THIS AM HE STATE BREATHING IMPROVING, FEELS CLOSER TO BASELINE, STATE HOPEFULLNESS. HE CONTINUES VERY SOB w EXERTION. O2 @ HOME DOSE 3L @ REST, HAVE INCREASED TO 4L w EXERT. O2 SATS DROP INTO 80'S w EXERT, PT REQUIRES REST TIME DURING ACTIVITY TO RECOVER THEN ABLE TO CONTINUE. REQUIRES REASSURANCE. HE CONTINUES TO STATE SORE MOUTH/THROAT, SCHEDULED NYSTATIN SWISH PROVIDES RELIEF, HE DECLINES CEPACOL LOZENGES. VERY BLE, REQUIRES ASSIST TO STAND, REPOSITION IN BED. DX CHF, LUNGS CLEAR TODAY, BLE EDEMA APPROX 1+, ORAL DIURETICS CONTINUE. COVID 19 TX DECARON & IV REMDESIVIR CONTINUE. VSS.
--- NOTE | 2020-05-17 06:49 | NUR ---
SHIFT SUMMARY PT IS AN 85 Y/O MALE, ADMITTED FOR SYSTOLIC CHF EXACERBATION AND COVID19 POSITIVE. HE IS A&O X 3, 1PA TO THE BSC, PT IS ON HIS HOME DOSE OF 3L OF O2 VIA NC, SATTING > 90%. VITAL SIGNS STABLE. NO C/O ACUTE PAIN, NAUSEA OR SOB. NO ACUTE CHANGES IN PT CONDITION NOTED. WILL CONTINUE TO MONITOR AND TREAT PER EMAR UNTIL HAND OFF TO DAY SHIFT RN.
[2020-05-17 10:00] LABS: Hematocrit 47.6 % (37.0-53.0); Hemoglobin 15.2 g/dL (13.5-17.5); Mean Corpuscular HGB 31.1 pg (26.0-34.0); Mean Corpuscular HGB Conc 31.9 g/dL (31.5-36.5); Mean Corpuscular Volume 97 fL (80-100); Mean Platelet Volume 10.3 fL (9.1-12.4); Platelet Count 159 K/mm3 (150-400); RDW Coefficient Variation 17.7 % (11.7-14.2); Red Blood Cell Count 4.89 M/mm3 (4.30-5.90); White Blood Cell Count 7.78 K/mm3 (4.00-11.30)
[2020-05-17 10:16] LABS: Albumin, Blood 2.6 g/dL (3.4-5.0); Anion Gap 5 mmol/L (6-16); Blood Urea Nitrogen 30 mg/dL (8-24); Bun/Creatinine Ratio 36.3 (12.0-20.0); CO2, Blood 31 mmol/L (21-32); Calcium, Blood 8.4 mg/dL (8.5-10.1); Chloride, Blood 103 mmol/L (98-108); Creatinine, Blood 0.83 mg/dL (0.60-1.20); Glomerular Filtration Rate >60 (60-); Glucose, Blood 185 mg/dL (70-99); Potassium, Blood 3.9 mmol/L (3.5-5.5); Sodium, Blood 139 mmol/L (136-145)
--- NOTE | 2020-05-17 16:43 | NUR ---
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 She shared his conchis journey with me and was appreciaitve of companionship/prayer. This is a bindu man. I will remain available.
--- NOTE | 2020-05-17 17:17 | NUR ---
SHIFT SUMMARY PT AxOx4, COOPERATIVE WITH CARE TODAY. OCCASIONAL ANXIETY NOTED T/O DAY, ESPECIALLY WITH TRANSFERS. PT CARDIZEM AND DIURETICS HELD THIS AM D/T LOW BP. AFTERNOON VITALS STABLE, AND LASIX ADMINISTERED. LUNG SOUNDS SANTOSH FINE CRACKLES AT BASES. PATIENT'S O2 REMAINED STABLE/ >90% ON 3L O2 T/O DAY. THIS IS CONSISTENT WITH THE PATIENT'S BASELINE. PT C/O HEADACHE THIS AM THAT RESOLVED WITH TYLENOL. ALSO C/O PAIN IN MOUTH FROM ORAL THRUSH. DR MALONE'S XYLOCAINE SOLUTION WHICH PATIENT REPORTED HELPED A LOT. PT HAD LARGE BM TODAY. UP TO BEDSIDE COMMODE WITH 2 PERSON ASSIST. PT STILL VERY WEAK AND EXERTS SIGNIFICANTLY WITH ACTIVITY. GOOD APPETITE. PLACED FLUID RESTRICTION TO 1500ML/DAY. PT/OT AGREED PT NOT APPROPRIATE FOR TREATMENT D/T BEING AT BASELINE PHYSICALLY. WANTS PT UP IN CHAIR FOR ALL MEALS. APPETITE IS GOOD. PT CURRENTLY RESTING IN CHAIR EATING DINNER. CALL LIGHT IN REACH. DENIES ANY NEEDS AT THIS TIME.
--- NOTE | 2020-05-17 19:15 | NUR ---
ASSUMED CARE RECEIVED REPORT FROM CALEB JACOBSON. ASSUMED CARE OF PT. RESTING IN BED COMFORTABLY, NO S/S ACUTE DISTRESS NOTED, RESPS E/U. C/O AMATO, REQUESTING TYLENOL, WILL MEDICATE PER EMAR. PT DENIES OTHER NEEDS AT THIS TIME. CALL LIGHT, POSSESSIONS IN REACH, BED IN LOW POSITION. WCTM.
[2020-05-18 05:59] LABS: Albumin, Blood 2.3 g/dL (3.4-5.0); Anion Gap 5 mmol/L (6-16); Blood Urea Nitrogen 39 mg/dL (8-24); Bun/Creatinine Ratio 37.9 (12.0-20.0); CO2, Blood 30 mmol/L (21-32); Calcium, Blood 8.5 mg/dL (8.5-10.1); Chloride, Blood 105 mmol/L (98-108); Creatinine, Blood 1.03 mg/dL (0.60-1.20); Glomerular Filtration Rate >60 (60-); Glucose, Blood 141 mg/dL (70-99); Phosphorus, Blood 3.7 mg/dL (2.5-4.9); Potassium, Blood 4.3 mmol/L (3.5-5.5); Sodium, Blood 140 mmol/L (136-145)
--- NOTE | 2020-05-18 06:00 | NUR ---
SHIFT SUMMARY PT RESTING COMFORTABLY, NO S/S ACUTE DISTRESS NOTED. RESPS E/U. VS REVIEWED, WNL, O2 SATS STABLE ON 3L/NC. PT TOLERATED REPOSITIONING WELL, NO S/S RESPIRATORY DISTRESS NOTED. PT APPEARED LESS ANXIOUS T/O NIGHT, DIRECTING OWN CARE WELL, COOPERATIVE WITH STAFF. MEDICATED X1 FOR C/O AMATO, WITH EFFECTIVE RELIEF. PT DENIES NEEDS AT THIS TIME, CALL LIGHT, POSSESSIONS IN REACH, BED IN LOW POSITION WITH ALARMS ON. WCTM, REPORT OFF TO ONCOMING RN.
--- NOTE | 2020-05-18 13:40 | NUR ---
DOUBLE LASIX DOSE GIVEN PT WAS GIVEN 2 DOSES OF AM LASIX 40MG. DR DOLL WAS NOTIFIED. BP 109/70, HR AT 102. PT REPORTS FEELING FINE. DR DOLL ADVISED TO CONTINUE MONITORING PT'S VITALS AND LET HER KNOW OF ANY CHANGES. OKAY TO GIVE PM LASIX LONG BP STABLE/>100 SYSTOLIC.
--- NOTE | 2020-05-18 18:37 | NUR ---
SHIFT SUMMARY PT AxOx4. COOPERATIVE WITH CARE. PHYSICALLY VERY LIMITED BY SEVERE DYSPNEA UPON EXERTION. SATS >90% ON 3L AT REST. TEMP INCREASE TO 5L FOR TRANSFERS. PT BLE SWELLING INCREASED TODAY COMPARED TO YESTERDAY. PT GIVEN INCREASED DOSE OF LASIX. NEW RUE SWELLING NOTED. DR ORDERED VENOUS DUPLEX US, PERFORMED IN ROOM THIS AFTERNOON. PT VERBALIZES WANTING TO WORK WITH PT/OT. DR DISCUSSING OPTIONS WITH THERAPY, THEY HAD PREVIOUSLY AGREED HE IS NOT APPROPRIATE FOR CARE. SEE THERAPY NOTES. GOOD APPETITE. PT ON 1500ML/DAY FLUID RESTRICTION, ADHERING WITHOUT DIFFICULTY. PT HAD BM TODAY. CURRENTLY RESTING IN BED. VITALS REVIEWED. DENIES ANY NEEDS AT THIS TIME.
--- NOTE | 2020-05-18 19:20 | NUR ---
ASSUMED CARE RECEIVED REPORT FROM CALEB JACOBSON. ASSUMED CARE OF PT. PT RESTING COMFORTABLY, NO S/S ACUTE DISTRESS NOTED. DENIES NEEDS. CALL LIGHT, POSSESSIONS IN REACH, BED IN LOW POSITION WITH ALARMS ON. TM.
--- NOTE | 2020-05-19 04:52 | NUR ---
SHIFT SUMMARY PT RESTING COMFORTABLY, NO S/S ACUTE DISTRESS NOTED. PT APPEARED TO BE MORE ANXIOUS TONIGHT, CONCERNED WITH THE LEVEL OF CARE HE WAS GETTING. PROVIDED LISTENING EAR, USED THERAPEUTIC COMMUNICATION AND ACTIVE LISTENING, ENCOURAGED PT TO EXPRESS CONCERNS. VS REVIEWED, PT REQUESTING INCREASE IN O2, TITRATED UP TO 3.5L/NC. RT PAGED, WILL COME TO EVALUATE PT. OTHER VS WNL. PT COMPLIANT WITH 1500ML FLUID RESTRICTION. DENIES FURTHER NEEDS AT THIS TIME. CALL LIGHT, POSSESSIONS IN REACH, BED IN LOW POSITION WITH ALARMS ON. WCTM, REPORT OFF TO ONCOMING RN.
[2020-05-19 05:40] LABS: Albumin, Blood 2.3 g/dL (3.4-5.0); Anion Gap 4 mmol/L (6-16); Blood Urea Nitrogen 35 mg/dL (8-24); Bun/Creatinine Ratio 38.8 (12.0-20.0); CO2, Blood 31 mmol/L (21-32); Calcium, Blood 8.5 mg/dL (8.5-10.1); Chloride, Blood 105 mmol/L (98-108); Glomerular Filtration Rate >60 (60-); Glucose, Blood 113 mg/dL (70-99); Phosphorus, Blood 3.5 mg/dL (2.5-4.9); Sodium, Blood 140 mmol/L (136-145)
--- NOTE | 2020-05-19 17:59 | NUR ---
SHIFT SUMMARY PATIENT IS HAVING INCREASED WORK OF BREATHING. HE IS STRUGGLING A LOT WITH HIS WORK OF BREATHING. AT HOME HE IS ON 3L O2 VIA NASAL CANNULA. HE IS CURRENTLY ON 5L O2 VIA NC. HE HAS PRONED TODAY AND TOMORROW HE WILL HAVE A CHEST XRAY FOR HIS CHEST. HE DOES HAVE SOME RHONCHI THAT WAS NOTED IN HIS UPPER LEFT CHEST WALL FROM RESPIRATORY THIS MORNING. HE IS VERY WELL STRUGGLING. DENIES CHEST PAIN.
[2020-05-20 06:19] LABS: Albumin, Blood 2.2 g/dL (3.4-5.0); Anion Gap 3 mmol/L (6-16); Blood Urea Nitrogen 30 mg/dL (8-24); Bun/Creatinine Ratio 30.7 (12.0-20.0); CO2, Blood 31 mmol/L (21-32); Calcium, Blood 8.3 mg/dL (8.5-10.1); Chloride, Blood 105 mmol/L (98-108); Creatinine, Blood 0.98 mg/dL (0.60-1.20); Glomerular Filtration Rate >60 (60-); Glucose, Blood 123 mg/dL (70-99); Phosphorus, Blood 3.4 mg/dL (2.5-4.9); Potassium, Blood 4.2 mmol/L (3.5-5.5); Sodium, Blood 139 mmol/L (136-145)
--- NOTE | 2020-05-20 07:35 | NUR ---
LOAD PLANNER SUMMARY Patient continues to refuse Biox saturation monitor. He states he "doesn't trust it". At start of shift, Ranjan was asking why he couldn't be on 3 liters NC instead of 5. I tried to explain that an oxygen stauration of 91% at rest on 5 liters is likely at least in part to respiratory complications of COVID in addition to his baseline lung problems. I explained that if he would allow us to use our 02 monitor, we would be able to trend his 02 and better treat his respiratory issues. Lung sounds coarse in dependent areas witih expiratory wheezes throughout. Only one breathing tx overnight
[2020-05-20 12:41] LABS: PO2 Arterial 73.3 mmHg (80-100); pH Blood Arterial 7.46 (7.35-7.45)
--- NOTE | 2020-05-20 15:21 | NUR ---
PATIENT HAS NO IV ACCESS. DR DOLL ORDERED IV LASIX. TRIED THREE TIMES TO GET AN IV ON THE PATIENT. WILL AWAIT DR. DOLL CALL BACK. PATIENT STATES THAT HE WILL DO WHAT IS BEST. COULD NOT GET THE IV TO THREAD ON THE PATIENT.
--- NOTE | 2020-05-20 18:21 | NUR ---
SHIFT SUMMARY NO ACUTE CONCERNS AT THIS TIME. PATIENT IS ON 6L O2 WHICH MAKES HIM AEROSOLIZED THIS IS "HIGH FLOW". PATIENT IS A LITTLE OFF WITH MENTATION WHICH HAS GOTTEN BETTER SINCE HIS SATURATIONS HAVE GOTTEN BETTER. HE HAS HAD A NEW IV PLACED TODAY BY ELVIRA ELLIS. DENIES ANY CONCERNS AT THIS TIME.
--- NOTE | 2020-05-20 20:59 | NUR ---
Spoke with patient regarding his insistance on using his own personal finger saturation monitor. Explained that we cannot document or trend his oxygen needs if he is refusing to allow us to use our equipment. Patient agreed when reminded of the situation of severe desaturation this morning. He had no recollection of the event.
--- NOTE | 2020-05-21 06:43 | NUR ---
AUTO RENTAL CLERK SUMMARY Patient had difficulty maintaining saturations above 85% on 7 liters high flow in the early evening. After speaking with patient about concerns, patient agreed to allow biox 02 monitoring which made him more aware, and oxygen saturations began to rise. Patient was placed prone on the bed and agreed to stay there for about two hours. While in that position, Ranjan's sat's went into mid 90's and stayed there the entire time he was there. Upon turning over, his 02 dropped again into mid to low 80's, and 02 was again increased to 9 liters NC. He also was found to have a temp of 100.8 which was treated successfully with tylenol. Much more calm and willing to work with staff to get better
--- NOTE | 2020-05-21 08:34 | NUR ---
CALLED DR. DOLL. WHEN VITALS AND CBG CHECKED THIS AM, PATIENT WAS "CRITICAL LOW" AT 47. PATIENT ALERT ENOUGH (ALTHOUGH LETHARGIC FROM NORMAL) TO DRINK ONE APPLE JUICE. SPOKE WITH CHARGE NURSES COLEMAN CAT AND CLARI SILVA. RECHECKED PATIENT'S BLOOD SUGAR AT 0830. BLOOD SUGAR @ 0830 WAS 69. PATIENT GIVEN PART OF HIS BREAKFAST HE IS AWAKE AND ALERT. NO CHANGE IN PATIENT STATUS AT THIS TIME. NO ACUTE CONCERNS. WILL HOLD MORNING FAST ACTING INSULIN. WILL AWAIT DOCTORS ORDER IN REGARDS TO LONG ACTING INSULIN. PATIENT RECEIVING BREATHING TREATMENT CURRENTLY. AFTER BREATHING TREATMENT PATIENT WILL HAVE MORNING MEDICATIONS. AT THIS TIME, PATIENT BLOOD PRESSURE ABOVE 100, WILL GIVE IV LASIX. PATIENT WAS PLACED ON 10L O2 OVER NIGHT ON HIGH FLOW NASAL CANNULA AND A CONTINUOUS OXIMETER. PATIENT AT 88% AT THIS TIME. CURRENTLY PATIENT INCREASED TO 11L. RESPIRATORY THERAPY IN TO ASSESS AND TREAT PATIENT. AWAITING CALL BACK FROM DR. DOLL.
--- NOTE | 2020-05-21 18:05 | NUR ---
SHIFT SUMMARY PATIENT IS PLEASANT, SPENT TWO HOURS PRONING TODAY. DENIES ANY CONCERNS AT THIS TIME. HE HAS BEEN VERY COOPERATIVE WITH CARE. HE DID HAVE A BOWEL MOVMENET TODAY. WHEN I GOT HERE HE WAS ON 10L O2. HE IS DOING WELL AFTER BEING PRONED. HE DENIES CHEST PAIN. DID START THE DAY WITH A HEADACHE AND A NEW EARACHE. THE PATIENT DENIES ANY URINARY DISFUNCTION AND STATES THAT HE IS AWAITING THIS VIRUS TO GO AWAY BECAUSE HE FEELS LIKE HE IS HAVING A GOOD DAY.
[2020-05-21 18:22] LABS: Albumin, Blood 2.5 g/dL (3.4-5.0); Anion Gap 7 mmol/L (6-16); Blood Urea Nitrogen 33 mg/dL (8-24); CO2, Blood 25 mmol/L (21-32); Calcium, Blood 8.9 mg/dL (8.5-10.1); Chloride, Blood 103 mmol/L (98-108); Creatinine, Blood 0.87 mg/dL (0.60-1.20); Glomerular Filtration Rate >60 (60-); Glucose, Blood 208 mg/dL (70-99); Phosphorus, Blood 3.5 mg/dL (2.5-4.9); Potassium, Blood 4.6 mmol/L (3.5-5.5); Sodium, Blood 135 mmol/L (136-145)
--- NOTE | 2020-05-22 03:25 | NUR ---
SHIP PROPELLER FINISHER SUMMARY Ranjan was fully awake most of the night. Respiratory therapist working on titrating down his oxygen which started this evening at 12.5 liters oximizer. Currently, he is running between 85 and 96 on 9 liters oximizer. He gets severly hypoxic with any motion or talking. Patient agreed to take only 5mg of his scheduled melatonin in an effort to keep his SAT up, but ended up asking for second half dose around 0100. Sleep did seem to improve a little as Ranjan relaxed. We worked on pursed lip breathing and partial prone position for approx one hour early tonight. Patient tolerated well except insisted on turning over after an hour.
[2020-05-22 05:09] LABS: Hematocrit 45.7 % (37.0-53.0); Hemoglobin 14.4 g/dL (13.5-17.5); Mean Corpuscular HGB 30.4 pg (26.0-34.0); Mean Corpuscular HGB Conc 31.5 g/dL (31.5-36.5); Mean Corpuscular Volume 96 fL (80-100); Mean Platelet Volume 10.4 fL (9.1-12.4); Platelet Count 153 K/mm3 (150-400); RDW Coefficient Variation 17.8 % (11.7-14.2); RDW Standard Deviation 63.6 fL (35.1-46.3); Red Blood Cell Count 4.74 M/mm3 (4.30-5.90); White Blood Cell Count 8.36 K/mm3 (4.00-11.30)
[2020-05-22 05:30] LABS: Albumin, Blood 2.3 g/dL (3.4-5.0); Anion Gap 5 mmol/L (6-16); Blood Urea Nitrogen 36 mg/dL (8-24); Bun/Creatinine Ratio 36.1 (12.0-20.0); CO2, Blood 29 mmol/L (21-32); Calcium, Blood 8.5 mg/dL (8.5-10.1); Chloride, Blood 104 mmol/L (98-108); Glomerular Filtration Rate >60 (60-); Glucose, Blood 135 mg/dL (70-99); Phosphorus, Blood 3.3 mg/dL (2.5-4.9); Potassium, Blood 4.3 mmol/L (3.5-5.5); Sodium, Blood 138 mmol/L (136-145)
--- NOTE | 2020-05-22 11:52 | NUR ---
Spiritual care visit conducted. Patient is leaning off to the side and panicked about his low oxygen levels. Patient states that he is pushing the call light and no one responds. I push call light and again no one responds. I go out of and tell patient's RN who responds immediately and takes care of patient's needs. She informs me that the call light situation has been an issue with his call light not working (Cayetano Snell, [facility] [employer]. has been informed of this issue). Patient then tells me about his personal concerns for his health and his Laura's health and about his anxiety. I listen empathically and provide anxiety containment and prayer. Patient responds well and shows signs of reduced stress. I will continue to remain available to patient and family.
--- NOTE | 2020-05-22 17:50 | NUR ---
ALERT. EXERTIONAL SOB. USES URINAL FROM BED. IV PATENT. OXYGEN AT 5.5 LPM WITH CONTINUOUS SATS MID TO LOW 90'S. PATIENT HAS HIS OWN FINGER SAT MONITOR WHICH DOES NOT CHEMICAL DEPENDENCY ATTENDANT HIS CORRECT SAT. PATIENT ADVISED NOT TO USE HE BECOMES VERY ANXIOUS WHEN SATS SHOW IN THE 80'S ON HIS, BUT ARE ACTUALLY READING 90'S. UNABLE TO GET CORRECT SATS USING PATIENT FINGERS.HOSPITAL SAT ON EAR LOBE. PLEASANT. COOPERATIVE. WCTM
--- NOTE | 2020-05-23 03:39 | NUR ---
CBG-145 PT'S 2099 CBG DID NOT INTERFACE TO AUG, 2099 CBG WAS 145.
--- NOTE | 2020-05-23 11:20 | NUR ---
AWARE OF EXERTIONAL DYSPNEA WITH VERY MINIMAL MOVEMENT IN BED. WCTM
--- NOTE | 2020-05-23 11:48 | NUR ---
PATIENT GETS VERY SOB WITH MOVING IN BED. SATS DROP TO 70'S. COAXED TO TAKE DEEP BREATHS IN THRU NOSE. OXYGEN TURNED UP TO 15 LITERS TO GET PATIENT TO 90%. TURNED DOWN TO 7LPM AFTER ABOUT 10 MINUTES.
--- NOTE | 2020-05-23 15:20 | NUR ---
ALERT. ORIENTED. EXERTIONAL SOB WITH VERY LITTLE MOVEMENT. DURING BED BATH AND WHEN MOVED IN BED FOR PORTABLE XRAY SATS DROPPED TO 70'S. OXYGEN NEEDED TO BE TURNED UP TO 15LPM FOR ABOUT 10 MINUTES AND GENTLE COAXING TO BREATH THRU NOSE AND OUT THRU MOUTH. OXYGEN BUMPED BACK DOWN TO 10LPM. PATIENT STS HAS APPOINTMENT AT [facility] WHEN HE GETS BETTER FOR LUNG PROBLEM MANAGEMENT. PATIENT FEELS IF HE CAN DO ARM AND LEG EXERCISES HE WILL GET BETTER, BUT HE DESATS WITH MINIMAL MOVEMENT. RN TRIED TO EXPLAIN THIS TO HIM. WCCYNDY.
--- NOTE | 2020-05-23 17:42 | NUR ---
PATIENT C/O LEFT SIDED CHEST PAIN. LITTLE WORSE W/DEEP INSPIRATION. NONRAD. PER , ICU, STAT EKG, TROP AND D-DIMER.
--- NOTE | 2020-05-23 18:09 | NUR ---
OXYGEN TURNED UP TO 55 L AND 94% OXYGEN WITH SATS AT 96% HEART RATE 52. SATS FLUCTUATE FROM 78 TO 94. HEART RATE 40 TO 50.
--- NOTE | 2020-05-23 19:20 | NUR ---
PATIENT TRANSFERRED TO ICU WITH BEDSIDE REPORT GIVEN TO DAY SHIFT RN. PATIENT NOTIFIED OF TRANSFER BY DAY SHIFT SOLDER TECHNICIAN. CHECKED PATIENTS EKG BEFORE TRANSFER. LABS DRAWN FOR TROP AND D-DIMER PRIOR TO TRANSFER.
--- NOTE | 2020-05-23 20:02 | NUR ---
TRANSFER TO ICU: PT HAS HAD RAPID RESPONSES x2 CALLED WHILE IN ROOM 314 THIS EVENING. HE HAS ARRIVED TO ROOM ICU-09 AT 1835 & IS ON AIRVO, SETTINGS: 60 L/MIN & 95% FIO2. HE IS VISIBLY DYSPNEIC & TACHYNPNEIC AT THAT TIME. IT IS DIFFICULT TO OBTAIN ACCURATE SPO2 READING R/T PT's COOL EXTREMITIES & OVERALL ANXIETY/ FIDGETING. BEDSIDE REPORT HAS BEEN GIVEN BY PRIOR RN. ATTEMPT IS MADE TO REMOVE SOILED LINEN FROM UNDER PT & HE BECOMES EVEN MORE ANXIOUS W/ DESATS NOTED TO LOW 80's. THE PT IS AGREEABLE TO CATHETER PLACEMENT FOR THIS REASON & THIS RN HAS PLACED A 16F TEMP HOLLOWAY, UA SENT. REPORT GIVEN TO DELFINO Ramirez RN TO ASSUME CARE.
[2020-05-23 20:13] LABS: Source, Urine Catheter
[2020-05-23 20:27] LABS: Appearance, Urine Clear (Clear); Bilirubin, Urine Neg (Neg); Blood, Urine 4+ (Neg); Color, Urine Amber (P-Yellow); Glucose Qualitative, Urine Neg (Neg); Ketones, Urine Neg (Neg); Leukocyte Esterase, Urine 1+ (Neg); Nitrite, Urine Neg (Neg); Protein, Urine 2+ (Neg); Urobilinogen, Urine 1+ (Normal)
[2020-05-23 20:35] LABS: Squamous Epithelial Cells Few /hpf (Few); White Blood Cells, Urine 0-2 /hpf (0-5)
[2020-05-23 20:36] LABS: Amorphous Light (0-Heavy); Bacteria Mod /hpf; Hyaline Casts 0-2 /lpf (0-2)
--- NOTE | 2020-05-23 20:59 | NUR ---
ASSUMED PT CARE AT 1930 FROM CAL[facility] CLEMENTS PT SITTING UP IN BED; ALERT AND ORIENTED AND ABLE TO MAKE NEEDS KNOWN. VERY SOB. TALKING IN 1-2 WORD SENTENCES. AIRVO AT 60L/MIN WITH FIO2 TITRATED FROM 75-95%. SPO2 LOW 90'S; HOWEVER, DECREASES WITH MINIMAL EXERTION AND TAKES PT A WHILE TO RECOVER BACK TO THE 90'S. LUNG SOUNDS ARE CLEAR TO BILATERAL UPPER LOBES AND VERY DIMINISHED TO BILATERAL LOWER LOBES. SINUS TACHYCARDIA NOTED WITH HR 110-120'S. BP'S STABLE, SEE FLOWSHEET. PT C/O 11/23 HEADACHE, MEDICATED WITH TYLNEOL PER EMAFiliberto. DR. FISH CONSULTED AND ASSESSED PT AT BEDSIDE. NO NEW ORDERS AT THIS TIME OTHER THAN TO KEEP PT ON THE AIRVO, IF CONDITION DETERIORATES FURTHER, THEN TO PLACE PT ON BIPAP AND CALL HER WITH AN UPDATE. CALL LIGHT WITHIN REACH; PT ABLE TO MAKE NEEDS KNOWN. WILL CONTINUE TO MONITOR.
[2020-05-24 04:13] LABS: PCO2 Arterial 42.5 mmHg (35-45); PO2 Arterial 64.5 mmHg (80-100); pH Blood Arterial 7.38 (7.35-7.45)
[2020-05-24 05:26] LABS: Hematocrit 49.3 % (37.0-53.0); Hemoglobin 15.4 g/dL (13.5-17.5); Mean Corpuscular HGB 30.7 pg (26.0-34.0); Mean Corpuscular HGB Conc 31.2 g/dL (31.5-36.5); Mean Corpuscular Volume 98 fL (80-100); NRBC ABSOLUTE 0.02 K/mm3 (0.00-0.02); NRBC Auto 0.2 /100 WBC (0.0-0.2); Platelet Count 169 K/mm3 (150-400); RDW Coefficient Variation 18.2 % (11.7-14.2); RDW Standard Deviation 66.1 fL (35.1-46.3); Red Blood Cell Count 5.02 M/mm3 (4.30-5.90); White Blood Cell Count 9.27 K/mm3 (4.00-11.30)
[2020-05-24 06:00] LABS: Bun/Creatinine Ratio 40.1 (12.0-20.0); Calcium, Blood 9.4 mg/dL (8.5-10.1); Creatinine, Blood 1.67 mg/dL (0.60-1.20); Potassium, Blood 4.8 mmol/L (3.5-5.5)
--- NOTE | 2020-05-24 06:02 | NUR ---
END OF SHIFT SUMMARY PT IS CURRENTLY ON BIPAP 29/03; FIO2 100%. AT APPROXIMATELY 0400 SPO2 DROPPED TO THE 80'S WITH AIRVO AT 60L AND 85%; FIO2 INCREASED TO 95% WITH MINIMAL IMPROVEMENT IN SPO2 TO 88-90%. PT PLACED ON BIPAP AT THAT TIME AND REPOSITIONED IN BED FOR BETTER OXYGENATION. PT DID NOT TOLERATE REPOSITION VERY WELL AT ALL. HE SAT STRAIGHT UP IN THE BED AND STARTED SHAKING, BILATERAL EYES GAZED UPWARD, AND PT BECAME UNRESPONSIVE. IT APPEARED THAT PT WAS HAVING SEIZURE LIKE ACTIVITY THAT LASTED LESS THAN A MINUTE; HOWEVER, AFTER PT RECOVERED AND BECAME RESPONSIVE AGAIN HE DIDN'T HAVE ANY POST ICTAL PHASE SYMPTOMS. ORDERS WERE OBTAINED FOR A ONE TIME DOSE OF ATIVAN 1MG, WHICH APPEARED MINIMALLY EFFECTIVE. RESP RATE NOTED TO BE 40-50'S. HR 110-120'S. BP'S STABLE, SEE FLOWSHEET. PT REMAINED ON THE BIPAP AT THIS TIME. PT NOTED TO BE GRABBING AT THINGS IN THE AIR AND PICKING AT THINGS ON HIS BLANKET. WHEN ASKED WHAT HE WAS GRABBING, HE STATED "NOTHING." PT AT TIMES NOTED TO HAVE NONSENSICAL SPEECH; HOWEVER, DIFFICULT TO MAKE OUT WITH BIPAP MASK IN PLACE. PT STILL ABLE TO STATE PERSON, PLACE, AND TIME. CALL LIGHT WITHIN REACH; WILL CONTINUE TO MONITOR UNTIL REPORT IS HANDED OFF TO ONCOMING RN.
--- NOTE | 2020-05-24 06:38 | NUR ---
DR. FISH CALL REGARDING WORK OF BREATHING WITH RESP RATE CONSISTENTLY 40-50'S. NEW ORDERS TO GIVE A ONE TIME DOSE OF SOLUMEDROL 1GM AND START A PRECEDEX GTT.
--- NOTE | 2020-05-24 07:48 | NUR ---
CARE ASSUMED OF PT AT 0700. PT SEDATED ON PRECEDEX AT 0.4MCG/KG/HR IN ABLE TO TOLERATE BIPAP. 14/10, 100% FIO2. GOOD SEAL, RESP RATE HIOGH 40'S TO LOW 50'S, USING ACCESSORY MUSCLES, VERY LABORED BREATHING. PT AROUSES WHEN TOUCHED/SPEECH BUT BREATHING THEN BECOMES MORE LABORED. COARSE CRACKLES TO BILAT BASES. MORE DIM TO LEFT SIDE. ABSENT BT'S. SATS 96%. SINUS TACH 110. BP STABLE AT THIS TIME. 130CC DARK URINE TO HOLLOWAY BAG. 1GM SOLUMEDROL ORDERED AND GIVEN IMMEDIATELY WHEN IT BECAME AVAILABLE FROM PHARMACY. R ARM SWOLLEN W PITTING EDEMA +2-3. LEFT ARM W/O EDEMA. PT MAY REQUIRE CENTRAL ACCESS. WILL CALL DR ABE Posada UPDATE SHORTLY
--- NOTE | 2020-05-24 08:32 | NUR ---
DR FISH CALLED AND UPDATED. LASIX GIVEN. RESP RATE 40-60, SATS DROPPED TO 82%. DR FISH CALLED. ATIVAN 2MG GIVEN; SATS BRIEFLY INCREASED TO 90%, RATE BRIEFLY LOWERED. RESP RATE 50-60, SATS 86%. RT AT BEDSIDE. PT'S CALLED BY CONVEYOR SYSTEM DISPATCHER. PT MAY REQUIRE INTUBATION. PRESSURE INCREASED TO 16 BY RT. CONVEYOR SYSTEM DISPATCHER AT BEDSIDE TO ASSIST; DR FISH WILL BE HERE SHORTLY. WILL CALL ER IF PT REQUIRE MORE IMMEDIATE INTUBATION.
--- NOTE | 2020-05-24 10:29 | NUR ---
DR FISH ARRIVED AT [facility] AT 0844. ETOMIDATE 20MG GIVEN AT 0855 FOR INTUBATION, PT INTUBATED 8.ETT/24 @GUM AT 0855. RESTRAINTS APPLIED. VENT SETTINGS AC20/TV350/100%FIO2/PEEP12. PROPOFOL STARTED AT [address] FISH. THEN INCREASED TO 35MCG PT NON-COMPLIANT W VENT; ATIVAN 2MG GIVEN AT [address] FISH FOR THIS SAME REASON; AT THIS TIME BP WAS STABLE. NS BOLUS STARTED AT 0910 AND PROPOFOL TURNED OFF DUE TO HYPOTENSION. DOPAMINE STARTED AT 20MCG (0917) WHILE DR FISH WAS PLACING CENTERAL LINE TO LEFT IJ. LEVOPHED STARTED AT 30MCG AT 0921. VASOPRESSIN STARTED AT 0.04UNITS AT 0930. EPI PUSH GIVEN AT 0927 FOR BRADYCARDIA. AMP OF BICARB AT 0930. ANOTHER EPI PUSH AT 0931. EPI GTT STARTED AT 10 AT 0935. AT 0930 PT'S AND FORMING ROLL OPERATOR STAN AT BEDSIDE. 2ND BOLUS OF NS STARTED AT 0939. CXR COMPLETED AT 0940; GOOD LINE AND ETT PLACEMENT PER DR FISH. ALL MEDS SWITCHED OVER TO CENTRAL LINE. AT 0950 UNABLE TO OBTAIN BP VIA DOPPLER. DR FISH ABLE TO COMFIRM CAROID PULSE. LEVOPHED INCREASED TO 50MCG AT [address] FISH. CPR STARTED AT 0958; SEE CODE BLUE RECORD. CODE CALLED AT [address] FISH. PT'S GIVEN SUPPORT BY ALL STAFF INCLUDING DR FISH. BELONGINGS GIVEN TO AT 1026. [facility] PT'S REQUEST PT GO TO [place]. POST MORT. CARE TO BE DONE.
--- NOTE | 2020-05-24 10:44 | NUR ---
Spiritual care visit conducted. Patient's spouse, Laura is gowning up to go into patient's rm. I hug her and walk into rm (I put on appropriate PPE) with her. I provide prayer and reassuring touch. Laura is intent on carrying out patient's wishes to having all heroic measures done until doctor says that there is nothing else that can be done. Patient goes from bad to worse. Laura is strong yet tearful. She repeats often, "At least I know he will be in a better place." Laura stands by while the staff does everything possible to assist patient but patient does not respond to life saving attempts. Laura grieves appropriately as DR. Orr calls off all efforts. I continue to provide hugs, prayers and inspirational comments that align with patient's and Laura's belief system. I walk patient to her car and make sure she is ok to drive and that she has a good support system to go home to (which she does).
== END 2020-05-24 10:00 | DRG 208 ==
LOC: ER 00:12 → ICUW 03:19 → MEDS 03:19 → PCU 03:19 → ERHOLD 03:19 → PCU 03:45 → MEDS 05-13 16:54 → ICUW 05-23 18:55
PROVIDERS: Emergency Medicine; Family Medicine; Internal Medicine; ADMIT Internal Medicine
PROC: 5A09357 Assistance with Respiratory Ventilation, Less than 24 Consecutive Hours, Continuous Positive Airway Pressure (ICD-10-PCS; principal; 2020-05-12)
PROC: XW033E5 Introduction of Remdesivir Anti-infective into Peripheral Vein, Percutaneous Approach, New Technology Group 5 (ICD-10-PCS; 2020-05-13)
PROC: XW033E5 Introduction of Remdesivir Anti-infective into Peripheral Vein, Percutaneous Approach, New Technology Group 5 (ICD-10-PCS; 2020-05-14)
PROC: XW033E5 Introduction of Remdesivir Anti-infective into Peripheral Vein, Percutaneous Approach, New Technology Group 5 (ICD-10-PCS; 2020-05-15)
PROC: XW033E5 Introduction of Remdesivir Anti-infective into Peripheral Vein, Percutaneous Approach, New Technology Group 5 (ICD-10-PCS; 2020-05-16)
PROC: 5A2204Z Restoration of Cardiac Rhythm, Single (ICD-10-PCS; 2020-05-24)
PROC: 5A1935Z Respiratory Ventilation, Less than 24 Consecutive Hours (ICD-10-PCS; 2020-05-24)
PROC: 0BH17EZ Insertion of Endotracheal Airway into Trachea, Via Natural or Artificial Opening (ICD-10-PCS; 2020-05-24)
PROC: 02HV33Z Insertion of Infusion Device into Superior Vena Cava, Percutaneous Approach (ICD-10-PCS; 2020-05-24)
PROC: 3E043XZ Introduction of Vasopressor into Central Vein, Percutaneous Approach (ICD-10-PCS; 2020-05-24)
DX: U07.1 COVID-19 (principal); J12.89 Other viral pneumonia; E84.9 Cystic fibrosis, unspecified; B37.0 Candidal stomatitis; I13.0 Hypertensive heart and chronic kidney disease with heart failure and stage 1 through stage 4 chronic kidney disease, or unspecified chronic kidney disease; Z79.82 Long term (current) use of aspirin; Z79.4 Long term (current) use of insulin; Z51.5 Encounter for palliative care; Z87.891 Personal history of nicotine dependence; E09.22 Drug or chemical induced diabetes mellitus with diabetic chronic kidney disease; N18.30 Chronic kidney disease, stage 3 unspecified; J84.10 Pulmonary fibrosis, unspecified; I27.20 Pulmonary hypertension, unspecified; Z96.649 Presence of unspecified artificial hip joint; Z96.659 Presence of unspecified artificial knee joint; E78.5 Hyperlipidemia, unspecified; E09.65 Drug or chemical induced diabetes mellitus with hyperglycemia; N40.0 Benign prostatic hyperplasia without lower urinary tract symptoms; G47.00 Insomnia, unspecified; Z99.81 Dependence on supplemental oxygen; R57.0 Cardiogenic shock; I50.810 Right heart failure, unspecified; I49.01 Ventricular fibrillation
CPT/HCPCS: 0202U; 31500; 31720; 36415; 36600; 51702; 71045; 80048; 80053; 80069; 81001; 82550; 82803; 82947; 83735; 83880; 84484; 85025; 85027; 85379; 87086; 93005; 93010; 93971; 94003; 94640; 94660; 94760; 94762; 96365; 96366; 97162; 99285-25; A9270; A9270-GY; J0171; J0456; J0696; J1100; J1265; J1650; J1940; J2060; J2704; J2930; J7030; J7050; J7060; J7512